=== PATIENT | female | born 1970 | race Caucasian/White ===

== ENCOUNTER 2017-03-23 06:07 | Day surgery (SDC) | payer SELFPAY ==
[2017-03-22 10:35] LABS: BASOPHILS # (AUTO) 0.2 K/uL (0.00-0.22); BASOPHILS % (AUTO) 3.3 % (0.0-2.0); EOSINOPHILS # (AUTO) 0.1 K/uL (0-0.4); EOSINOPHILS % (AUTO) 1.8 % (0.0-4.0); HEMATOCRIT 40.5 % (36-48); HEMOGLOBIN 13.6 g/dL (12.0-16.0); LYMPHOCYTES # (AUTO) 1.7 K/uL (2.5-16.5); MEAN CORPUSCULAR HEMOGLOBIN 31 pg (27-31); MEAN CORPUSCULAR HGB CONC 33 g/dL (33-37); MEAN CORPUSCULAR VOLUME 94 fL (80-94); MONOCYTES # (AUTO) 0.2 K/uL (0.8-1.0); MONOCYTES % (AUTO) 2.6 % (1.7-9.3); NEUTROPHILS # (AUTO) 4.9 K/uL (1.8-7.7); NEUTROPHILS % (AUTO) 68.3 % (42.2-75.2); PLATELET COUNT (AUTO) 208 K/uL (140-450); RED BLOOD CELL COUNT(AUTO) 4.31 MIL/uL (4.20-5.40); RED CELL DISTRIBUTION WIDTH 12.3 % (11.6-13.7); WHITE BLOOD COUNT (AUTO) 7.1 K/uL (4.8-10.8)
[2017-03-22 10:55] LABS: ALBUMIN 4.4 g/dL (3.4-5.0); ANION GAP 12.9 (8-16); CARBON DIOXIDE 27.7 mmol/L (21-32); CREATININE 0.6 mg/dL (0.6-1.3); POTASSIUM 3.6 mmol/L (3.5-5.1); TOTAL BILIRUBIN 0.6 mg/dL (0.0-1.0)
[~2017-03-23] VITALS: Ht 157.5 cm; Wt 51.7 kg
[2017-03-23] MEDS ORDERED: METF500T PO (07:57)
[2017-03-23] MEDS ORDERED: FLUO20TA35 PO (07:57)
[2017-03-23] MEDS ORDERED: ROCURONIUM 50 MG/5 ML VIAL IV ONE (10:50)
[2017-03-23] MEDS ORDERED: KETOROLAC 30 MG/ML VIAL ONE (10:50)
[2017-03-23] MEDS ORDERED: ONDANSETRON 4 MG/2 ML VIAL ONE (10:50)
[2017-03-23] MEDS ORDERED: PROPOFOL 200 MG/20 ML VIAL IV ONE (10:50)
[2017-03-23] MEDS ORDERED: DESFLURANE 240 ML BTL INH ONE (10:50)
[2017-03-23] MEDS ORDERED: HYDROmorphone PFS 2 MG/ML SYR ONE ×2 (10:55→12:01)
[2017-03-23] MEDS ORDERED: fentaNYL 0.05 MG/ML VIAL ONE (10:55)
[2017-03-23] MEDS ORDERED: BUPIVACAINE-MPF 0.25% 30 ML VIAL INJ ONE (11:09)
[2017-03-23] MEDS ORDERED: ONDANSETRON 4 MG/2 ML VIAL IVP PRN (11:20)
[2017-03-23] MEDS ORDERED: HYDROmorphone 1 MG/ML AMP IVP PRN ×2 (11:20→12:15)
[2017-03-23] MEDS ORDERED: NACL 0.9% 1,000 ML IV SCH (12:12)
[2017-03-23] MEDS ORDERED: ACETAMINOPHEN 325 MG TAB PO PRN (12:15)
[2017-03-23] MEDS ORDERED: ONDANSETRON 4 MG/2 ML VIAL IV PRN (12:15)
[2017-03-23 14:30] VITALS: BP 131/77
--- NOTE | 2017-03-23 14:30 | NUR ---
[facility] ACCOM[facility]IED BY PT. -INGRID. PT. SEDATED BUT RESPONSIVE. NO ACUTE DISTRESS NOTICED. KEEP COMFORTABLE ON BED. CALL LIGHT WITHIN REACH.
[2017-03-23 14:45] VITALS: BP 115/70
[2017-03-23 15:00] VITALS: BP 127/75
[2017-03-23 16:00] VITALS: BP 121/75
[2017-03-23 17:00] VITALS: BP 119/79
--- NOTE | 2017-03-23 19:05 | NUR ---
AMBULATES ON HALLWAY WITH ASSISTANCE FROM CLAUDETTE SCALES. TOLERATED WELL. NO C/O PAIN.
--- NOTE | 2017-03-23 19:15 | NUR ---
BEDSIDE REPORT GIVEN TO MEG HERNANDEZ IN STABLE CONDITION.
--- NOTE | 2017-03-23 19:16 | NUR ---
RECD. AMBULATING FROM BR, AWAKE, A/OX4. RESPIRATION EVEN AND UNLABORED. IV SALINE LOCK AT THE RIGHT HAND G20, PATENT AND INTACT. S/P LAP CHOLECYSTECTOMY FROM OUT PATIENT SURGERY. INCISION IN THE ABDOMEN (4) COVERED WITH BAND AID DRESSING, ALL DRY AND INTACT. VERY EAGER TO VOID, STATED HAD DRINK ALREADY A LOT OF WATER BUT UNABLE TO VOID. ENCOURAGE TO AMBULATE. PAIN IN THE ABDOMEN 08/11. WILL MEDICATE ORDERED. PLAN CARE FOR THE SHIFT DISCUSSED. VERBALIZED UNDERSTANDING. AT THE BEDSIDE.
--- NOTE | 2017-03-23 19:50 | NUR ---
COMPLAINT OF PAIN IN THE ABDOMEN AND BACK, OFFERED PAIN MEDICATION BUT INSISTENT TO HAVE CATHETERIZED FIRST, BELIEVE HER PAIN IS DUE TO INABILITY TO VOID. SEEMS ANXIOUS, ADVISED TO RELAX. WILL CALL MD FOR ORDER.
--- NOTE | 2017-03-23 20:15 | NUR ---
INFORMED DR. GALLOWAY PATIENT CAME TO THE FLOOR 1430 AND CRYING, PLEADING TO BE CATHETERIZED. ORDERED TO DO STRAIGHT CATHETER.
--- NOTE | 2017-03-23 20:20 | NUR ---
STRAIGHT CATHETER DONE, ABLE TO OBTAINED 300 ML OF URINE.
[2017-03-23 20:35] VITALS: BP 129/78
--- NOTE | 2017-03-23 20:35 | NUR ---
VS TAKEN - 98.1, HR - 78, BP - 129/78, RR - 18, O2 SAT - 94%, PAIN IN THE ABDOMEN 03/11. WILL MEDICATE ORDERED.
[2017-03-23] MEDS: MORPHINE SULFATE 4 MG/ML SYR IV PRN (20:38)
--- NOTE | 2017-03-23 20:38 | NUR ---
MEDICATED WITH MORPHINE ORDERED BY LO THOMAS.
--- NOTE | 2017-03-23 21:30 | NUR ---
Patient's Plan of Care was discussed and reviewed with RN TRAVEL: MEG GOMEZ
--- NOTE | 2017-03-23 22:00 | NUR ---
SANDWICH AND JUICE GIVEN REQUESTED. INSTRUCTED TO DRINK MORE WATER TO BE ABLE TO VOID BY HERSELF. VERBALIZED UNDERSTANDING.
--- NOTE | 2017-03-24 01:00 | NUR ---
COMPLAINING OF UNABLE TO VOID AGAIN. USED THE BLADDER SCANNER, 188 ML NOTED. EXPLAINED THERE'S NOT A LOT OF URINE IN THE BLADDER. STILL WANTS TO BE CATHETERIZED, KEEP ON COMPLAINING SHE FEELS THERE'S URINE IN HER BLADDER THAT SHE CAN'T TAKE OUT BY URINATING, STATED SHE TRIED SITTING IN THE TOILET TWO TIMES BUT UNABLE TO VOID. WILL INFORM MD.
--- NOTE | 2017-03-24 01:40 | NUR ---
INFORMED DR. GALLOWAY REGARDING PATIENT UNABLE TO VOID, ORDERED TO PUT A MARTINEZ CATHETER.
--- NOTE | 2017-03-24 01:50 | NUR ---
PUT F/C ORDERED. ABLE TO OBTAINED 200 ML CLEAR YELLOW URINE.
[2017-03-24] MEDS: HYDROcodone/APAP 5/325 MG 1 TAB TAB PO PRN ×2 (02:07→11:31)
[2017-03-24] MEDS: MORPHINE SULFATE 4 MG/ML SYR IV PRN (02:46)
--- NOTE | 2017-03-24 03:30 | NUR ---
STILL AWAKE, UNABLE TO SLEEP. ADVISED TO TRY TO RELAXED SO SHE WILL ABLE TO SLEEP.
--- NOTE | 2017-03-24 06:30 | NUR ---
DISCONTINUED F/C. ABLE TO HAVE 1,100 ML URINE FOR THE SHIFT. INSTRUCTED TO DRINK WATER AND SHOULD BE ABLE TO VOID BY HERSELF SO SHE CAN GO HOME TODAY. VERBALIZED UNDERSTANDING. WILL ENDORSE TO AM NURSE FOR MONITORING OF VOIDING. CONDITION REMAIN STABLE.
--- NOTE | 2017-03-24 07:27 | NUR ---
RECEIVED REPORT FROM PM RN. PT AAO. RESP EVEN AND UNLABORED. DENIES PAIN OR DISCOMFORT. NO S/S OF DISTRESS. IV IS INTACT. AT BEDSIDE. PER REPORT MARTINEZ REMOVED AT 0630, PT ENCOURAGED TO DRINK FLUIDS AND ATTEMPT VOIDING. NO REDNESS OR SWELLING ON THE INCISION SITE. BANDAGE IS CLEAN, DRY, INTACT. PLAN OF CARE DISCUSSED WITH PT. PT VERBALIZED UNDERSTANDING. SAFETY MEASURES IN PLACED. BED ON LOW POSITION, SIDE RIALS UP, CALL LIGHT WITHIN REACH. WILL CONTINUE TO MONITOR.
[2017-03-24 08:00] VITALS: BP 125/74
--- NOTE | 2017-03-24 10:00 | NUR ---
ENCOURAGED PT TO DRINK FLUIDS. PT WAS ABLE TO VOID. NO SIGNS OF DISTRESS. WILL CONTINUE TO MONITOR.
--- NOTE | 2017-03-24 10:56 | NUR ---
DR GALLOWAY AT BEDSIDE. PT TO BE DISCHARGED SOON. PT VERBALIZED UNDERSTANDING. NO S/S DISTRESS, SOB, OR RESTLESSNESS. WILL CONITNUE TO MONITOR.
[2017-03-24] MEDS ORDERED: DOCUSATE SODIUM 100 MG GELCAP PO PRN (11:15)
[2017-03-24 11:30] VITALS: BP 106/67
--- NOTE | 2017-03-24 11:30 | NUR ---
DISCHARGED INSTRUCTIONS GIVEN AND EXPLAINED TO PT VIA RYLIE IN [place]. PT VERBALIZED UNDERSTANDING. DC'ED IV, CATHETER INTACT WITH NO BLEEDING NOTED. VSS. NO S/S DISTRESS, SOB, RESTLESSNESS. PAIN MEDICATION AND STOOL SOFTENER ADMINISTERED. TOLERATED WELL. ARMBANDS REMOVED. PHOTOS TAKEN ON ABDOMINAL INCISIONS. NO BLEEDING, DISCHARGE, REDNESS, AND OR SWELLING ON INCISION SITES X 4. CARLOS INTACT. PT TO BE DISCHARGED WITH HER .
--- NOTE | 2017-03-24 11:58 | NUR ---
ESCORTED PT TO THE LOBBY. AMBULATED WITH STEADY GAIT.
== END 2017-03-24 11:57 | disposition home or self-care (01) ==
LOC: MDS 06:07 → MMU 06:08 → MTU 20:00 → MDS 03-24 11:57
PROVIDERS: ATTEND Surgery
DX: K80.10 Calculus of gallbladder with chronic cholecystitis without obstruction (principal); F32.9 Major depressive disorder, single episode, unspecified; F41.9 Anxiety disorder, unspecified; I10 Essential (primary) hypertension; E11.9 Type 2 diabetes mellitus without complications; Z98.890 Other specified postprocedural states
CPT/HCPCS: 47562; 71010; 80053; 81025; 82948; 85025; 86886; 86900; 86901; 93005; C1758; J0690; J1170; J1885; J2270; J2405; J2704; J3010; J3490; J7030; J7060; 88304